=== PATIENT | male | born 1995 | race Caucasian/White ===

== ENCOUNTER 2017-02-17 13:59 | Emergency (ER) | payer OTHER ==
[~2017-02-17 13:59] MED LIST: AUGMENTIN PO
== END 2017-02-17 15:33 | disposition home or self-care (01) ==
LOC: CED 13:59 → CFTX 13:59
DX: J02.0 Streptococcal pharyngitis (principal); Z79.899 Other long term (current) drug therapy
CPT/HCPCS: 87880; 96372; 99283; J0561

== ENCOUNTER 2017-06-18 14:55 | Emergency (ER) | payer OTHER ==
[~2017-06-18] VITALS: Ht 175.3 cm; Wt 95.2 kg
== END 2017-06-18 17:38 | disposition home or self-care (01) ==
LOC: CFTX 14:55 → CED 14:55 → CFTX 17:37
DX: L03.031 Cellulitis of right toe (principal)
CPT/HCPCS: 99283